=== PATIENT | female | born 1935 | race Caucasian/White ===

== ENCOUNTER 2017-03-16 12:38 | Emergency (ER) | payer MEDICARE, OTHER ==
[~2017-03-16 12:38] MED LIST: ALPHA LIPOIC300 MG PO; ASAB PO; ATACAND32 MG PO; BRILINTA90 MG PO; CALGLUCTAB PO; LEVOTHYROXIN125 MCG PO; LOP25 PO; MULTIPLE VIT PO; NORV10 PO; PRAVACHOL40 MG PO; PRILO PO; TUMSROLL PO; ULTRAM50 PO
== END 2017-03-16 13:53 | disposition home or self-care (01) ==
LOC: ER 12:38
PROC: 0PSJXZZ Reposition Left Radius, External Approach (ICD-10-PCS; principal; 2017-03-16)
DX: S52.572A Other intraarticular fracture of lower end of left radius, initial encounter for closed fracture (principal); I10 Essential (primary) hypertension; E11.9 Type 2 diabetes mellitus without complications; Z95.1 Presence of aortocoronary bypass graft; Z88.8 Allergy status to other drugs, medicaments and biological substances; Z79.82 Long term (current) use of aspirin; Z79.899 Other long term (current) drug therapy; W19.XXXA Unspecified fall, initial encounter
CPT/HCPCS: 73090-LT; 73110-LT; 96374; 96375; 99283; J2405